=== PATIENT | female | born 1955 | race Caucasian/White ===

== ENCOUNTER → 2020-12-28 | Outpatient (CLI) | payer MEDICARE ==
[~2020-12-28] MED LIST: ALENDRONATE SOD70 MG PO; ASPIR 8181 MG PO; LIPITOR TAB 2020 MG PO; MECLIZINE HCL25 MG PO; METFORMIN HCL500 MG PO; NAPROSYN500 MG PO; NEXIUM20 MG PO; NORCO 5-325 TA1 EACH PO; NORVASC 5 MG TAB5 MG PO; ULTRAM50 MG PO
== END ==
LOC: MAMO 05-11 15:00
DX: Z12.31 Encounter for screening mammogram for malignant neoplasm of breast (principal)
CPT/HCPCS: 77063; 77067

== ENCOUNTER 2021-04-03 16:42 | Emergency (ER) | payer MEDICARE ==
[2021-04-03 17:23] LABS: HEMOGLOBIN 14.2 gm/dl (12.3-15.3); RED BLOOD COUNT 4.43 M/UL (4.00-5.10); WHITE BLOOD COUNT 7.3 K/UL (4.5-11.0)
[2021-04-03 17:55] LABS: BUN/CREATININE RATIO 17 (0-10)
== END 2021-04-03 20:05 | disposition home or self-care (01) ==
LOC: ER1 16:42
PROVIDERS: Physician Assistant
DX: J06.9 Acute upper respiratory infection, unspecified (principal); I10 Essential (primary) hypertension; F17.200 Nicotine dependence, unspecified, uncomplicated; E11.9 Type 2 diabetes mellitus without complications; Z90.710 Acquired absence of both cervix and uterus; Z20.822 Contact with and (suspected) exposure to COVID-19; E78.5 Hyperlipidemia, unspecified
CPT/HCPCS: 71045; 80053; 82550; 82553; 83605; 83874; 84484; 85025; 87040; 93005; 99284; U0002